=== PATIENT | male | born 1950 | race Caucasian/White ===

== ENCOUNTER 2021-06-06 18:38 | Inpatient (IN) | payer MEDICARE, OTHER ==
[~2021-06-06] VITALS: Ht 15.2 cm; Wt 48.6 kg
[~2021-06-06 18:38] MED LIST: NO HOME MEDICATIONS; PRILOSEC 20MG20 MG PO
[2021-06-06 19:16] LABS: HEMATOCRIT 40.7 % (42.0-52.0); HEMOGLOBIN 14.4 g/dl (13.5-18.0); MEAN CELL VOLUME 96 fl (80.0-100.0); MEAN CORPUSCULAR HEMOGLOBIN 34 pg (27.0-31.0); MEAN CORPUSCULAR HGB CONC 35 g/dl (33.0-37.0); MEAN PLATELET VOLUME 9.7 fl (7.4-10.4); PLATELET COUNT 289 K/mm3 (130-400); RED BLOOD COUNT 4.24 M/mm3 (4.20-5.60); REDCELL DISTRIBUTION WIDTH-CV 12.8 % (11.5-14.5)
[2021-06-06 19:34] LABS: ARTERIAL BLD GAS O2 SATURATION 93.5 % (92-100); ARTERIAL BLD GAS TCO2 CT 27.4; ARTERIAL BLOOD GAS HCO3 26.3 meq/L (22-26); ARTERIAL BLOOD GAS PCO2 35.9 mmHg (35-45); ARTERIAL BLOOD GAS PO2 65.6 mmHg (80-100); ARTERIAL BLOOD GAS pH 7.48 (7.35-7.45)
[2021-06-06 19:38] LABS: ALBUMIN 3.2 gm/dL (3.4-4.8); BILIRUBIN,TOTAL 0.7 mg/dL (0.2-1.2); C-REACTIVE PROTEIN 25.47 mg/dL (0.00-0.50); CALCIUM 9.3 mg/dL (8.4-10.2); CREATININE, serum 0.71 mg/dL (0.72-1.25); POTASSIUM 4.2 mmol/L (3.5-4.5); TOTAL PROTEIN 7.2 gm/dL (6.2-8.1)
[2021-06-06 19:44] LABS: TROPONIN-I 0.026 ng/mL (0.00-0.033)
[2021-06-06 19:51] LABS: LYMPHOCYTE 6 % (20.0-51.0); NEUTROPHILS 92 % (42.0-75.2); PLATELET ESTIMATE NORMAL (NORMAL)
--- NOTE | 2021-06-06 22:19 | NUR ---
ARRIVED TO UNIT VIA STRETCHER, SHORTNESS OF BREATH NOTED, O2@2.5L PER NC, DENIES PAIN, AMIRAH TAVERAS AT BEDSIDE.
[2021-06-06] MEDS ORDERED: RT ALBUTER2.5 MG/0.5 INH (22:21)
[2021-06-06] MEDS ORDERED: STIOLTO RESPIMAT4 GM INH (22:22)
[2021-06-06] MEDS ORDERED: ZITHROMAX 250M250 MG PO (22:23)
[2021-06-06 23:56] VITALS: BP 105/68; PULSE 109; TEMP 97.9
[2021-06-07 04:07] VITALS: BP 123/70; PULSE 96; TEMP 97.5
--- NOTE | 2021-06-07 06:18 | NUR ---
Patient rested quietly throughout the night, no c/o at this time, vs stable, updated on plan of care.
[2021-06-07 07:05] VITALS: BP 110/74; PULSE 98; TEMP 97.6
--- NOTE | 2021-06-07 07:05 | NUR ---
Pt. supine in bed, alert, awake. O2 on @3L/min NC. Breath sounds coarse through peripheral leon, dimnished @bases. Pt. reports pain in chest/clavicle area from cough. INT on right wrist intact/no redness/ edema
[2021-06-07 08:28] LABS: HEMATOCRIT 39.4 % (42.0-52.0); HEMOGLOBIN 13.5 g/dl (13.5-18.0); MEAN CELL VOLUME 97 fl (80.0-100.0); MEAN CORPUSCULAR HEMOGLOBIN 33 pg (27.0-31.0); MEAN CORPUSCULAR HGB CONC 34 g/dl (33.0-37.0); MEAN PLATELET VOLUME 10.2 fl (7.4-10.4); PLATELET COUNT 287 K/mm3 (130-400); RED BLOOD COUNT 4.05 M/mm3 (4.20-5.60); REDCELL DISTRIBUTION WIDTH-CV 12.9 % (11.5-14.5)
[2021-06-07 08:38] LABS: CALCIUM 9.5 mg/dL (8.4-10.2); CREATININE, serum 0.7 mg/dL (0.72-1.25); POTASSIUM 4.3 mmol/L (3.5-4.5)
[2021-06-07 08:46] LABS: BAND 8 % (0-10); LYMPHOCYTE 3 % (20.0-51.0); NEUTROPHILS 88 % (42.0-75.2); PLATELET ESTIMATE NORMAL (NORMAL)
--- NOTE | 2021-06-07 09:22 | NUR ---
Pt has a student nurse caring for him this am. Pt sitting in bed upon entry, he is A/O x4. Pt seems dyspneic with any exertion or speaking. Endorses some SOB. Does have a productive cough. NO pain at this time. IVF infusing without issues. No needs at this time. Call light within [facility].
--- NOTE | 2021-06-07 09:40 | NUR ---
Sputum collected. Sent to lab.Sputum white in color and thick
--- NOTE | 2021-06-07 09:44 | NUR ---
SW met with the patient to discuss discharge plan. The patient lives in [place] with his , Amena (ph#[phone]), and their son, Sean. He reports independence with ADLs and does not have any DME. The patient states that he used to have home oxygen, but [facility]. He states that the [facility] informed him that he has a fast recovery off oxygen and that he no longer needed it. The patient states that he sees a female provider at the [facility]. He states that he has only seen her once and could not recall her name. He [facility] in [facility] and in . The patient does not have a DPOA-HC and he was not interested in completing one at this time. The patient plans to return home with his upon discharge. He is currently on 2 liters of oxygen. SW to continue to monitor. *Discharge plan: home with *
[2021-06-07 11:00] VITALS: BP 122/65; PULSE 78; TEMP 98.5
--- NOTE | 2021-06-07 13:01 | NUR ---
Initial visit; Patient thanked Voice Over Announcer for stopping in and states he may be here for awhile and is concerned about his health issues. Patient appreciates Voice Over Announcer praying for him and is fine about Voice Over Announcer checking in on him while he is a patient here.
[2021-06-07 15:31] VITALS: BP 127/71; PULSE 110; TEMP 98.1
[2021-06-07 19:17] VITALS: BP 129/85; PULSE 109; TEMP 97.9
--- NOTE | 2021-06-07 21:30 | NUR ---
ASSESSMENT COMPLETE. PT COOPERATIVE WITH CARES. PT RESTING IN BED WATCHING TV. PT DENIES PAIN, PALPITATIONS, SOB OR DIZZINESS. PT STATES HE HAS NO OTHER NEEDS AT THIS TIME. CALL LIGHT WITHIN REACH.
--- NOTE | 2021-06-07 23:31 | NUR ---
PT. REQUESTED TREATMENT AT 2330 AFTER REFUSING AT 2100. WILL ATTEMPT TO DELAY THERAPY UNTIL 0800 UNLESS PATIENT CALLS OVERNIGHT.
[2021-06-08] VITALS (7 sets, daily range): BP systolic 112–156; BP diastolic 65–90; PULSE 95–118; TEMP 97.7–98.3
--- NOTE | 2021-06-08 06:40 | NUR ---
PT ASLEEP IN BED. PT SLEPT PEACEFULLY ALL NIGHT. PT DENIES PAIN, PALPITATIONS, SOB OR DIZZINESS. PT STATES HE HAS NO OTHER NEEDS AT THIS TIME. CALL LIGHT WITHIN REACH.
[2021-06-08 06:47] LABS: HEMOGLOBIN 12.2 g/dl (13.5-18.0); MEAN CELL VOLUME 97 fl (80.0-100.0); MEAN CORPUSCULAR HEMOGLOBIN 34 pg (27.0-31.0); MEAN CORPUSCULAR HGB CONC 35 g/dl (33.0-37.0); MEAN PLATELET VOLUME 10.3 fl (7.4-10.4); PLATELET COUNT 314 K/mm3 (130-400); RED BLOOD COUNT 3.59 M/mm3 (4.20-5.60); REDCELL DISTRIBUTION WIDTH-CV 12.5 % (11.5-14.5)
[2021-06-08 06:56] LABS: HEMATOCRIT 34.7 % (42.0-52.0)
[2021-06-08 07:05] LABS: CREATININE, serum 0.69 mg/dL (0.72-1.25); POTASSIUM 3.8 mmol/L (3.5-4.5)
[2021-06-08 07:34] LABS: CALCIUM 8.8 mg/dL (8.4-10.2)
[2021-06-08 07:54] LABS: BAND 13 % (0-10); LYMPHOCYTE 4 % (20.0-51.0); METAMYELOCYTE 1 % (0-0); NEUTROPHILS 78 % (42.0-75.2); PLATELET ESTIMATE NORMAL (NORMAL)
--- NOTE | 2021-06-08 08:16 | NUR ---
Pt assessment complete. Pt laying in bed upon entry, he is A/O x4. His breathing is even and unlabored on 2L O2 via NC. Reports SOB with exertion. Denies any pain. No N/V. No needs at this time. Call light within reach.
--- NOTE | 2021-06-08 14:31 | NUR ---
KAYLAH was notified that the patient and his had questions about the VA and Medicare. KAYLAH met with the patient and his , Amena, to address the above. The patient and his confirm that the patient has Medicare Part A and B. SW informed them how Medicare does cover for home oxygen, if the patient has a chronic diagnosis and qualifies for oxygen. The patient and his verbalized understanding. The patient and his report that they would like for the hospital stay to be switched to be billed under his Medicare, instead of the [facility]. They provided SW with a copy of the insurance card. KAYLAH notified and faxed a copy of the card to [employer] in admissions and [facility] with financial counseling.
--- NOTE | 2021-06-08 19:07 | NUR ---
Pt had uneventful day, did feel very SOB after ambulating to the restroom this afternoon. Pt increased to 3L O2 via NC, and PRN breathing treatments ordered. Did feel some chest tightness at that time. Denies any pain. No N/V. NO needs at this time. Call light within reach.
--- NOTE | 2021-06-08 22:30 | NUR ---
ASSESSMENT COMPLETE. PT COOPERATIVE WITH CARES. PT RESTING IN BED NAPPING. EARIER PT COMPLAINED OF FEELING "OFF," TO RESEARCH ANTHROPOLOGIST. HOWEVER PT COULD NOT DESCRIBE WHAT HE MEANT BY "OFF," WHEN I WENT IN TO CHECK ON HIM. PT STATED WHAT HE WAS FEELING WAS OVER, AT THAT POINT. PT DENIES PAIN, PALPITATIONS, SOB OR DIZZINESS. PT STATES HE HAS NO OTHER NEEDS AT THIS TIME. CALL LIGHT WITHIN REACH.
[2021-06-09 03:57] VITALS: BP 116/61; PULSE 104; TEMP 97.6
--- NOTE | 2021-06-09 06:03 | NUR ---
PT ASLEEP IN BED. PT REPORTED NO OTHER EPISODES OF FEELING "OFF" TONIGHT. CALL LIGHT WITHING REACH.
[2021-06-09 07:01] LABS: BASO % 0.1 % (0.0-2.0); GRAN # 12.1 K/mm3 (1.4-6.5); GRAN % 89.4 % (42.2-75.2); HEMOGLOBIN 11.4 g/dl (13.5-18.0); LYMPH # 0.7 K/mm3 (1.2-3.4); LYMPH % 5.4 % (20.0-51.0); MEAN CELL VOLUME 99 fl (80.0-100.0); MEAN CORPUSCULAR HEMOGLOBIN 34 pg (27.0-31.0); MEAN CORPUSCULAR HGB CONC 34 g/dl (33.0-37.0); MEAN PLATELET VOLUME 10.3 fl (7.4-10.4); MONO # 0.6 K/mm3 (0.1-0.6); MONO % 4.4 % (1.7-9.3); PLATELET COUNT 303 K/mm3 (130-400); RED BLOOD COUNT 3.37 M/mm3 (4.20-5.60); REDCELL DISTRIBUTION WIDTH-CV 12.8 % (11.5-14.5)
[2021-06-09 07:08] LABS: HEMATOCRIT 33.5 % (42.0-52.0)
[2021-06-09 07:28] LABS: CALCIUM 8.6 mg/dL (8.4-10.2); CREATININE, serum 0.69 mg/dL (0.72-1.25); MAGNESIUM 1.9 mg/dL (1.6-2.6); POTASSIUM 3.9 mmol/L (3.5-4.5)
[2021-06-09 08:00] VITALS: BP 121/81; PULSE 99; TEMP 98.1
--- NOTE | 2021-06-09 10:24 | NUR ---
PT RESTING IN BED. MORNING MEDICATIONS GIVEN. SHIFT ASSESSMENT COMPLETED. PT IV TO R HAND INFILTRATED, THIS RN REMOVED. DENIES ANY PAIN OR NEEDS. WILL CONTINUE TO MONITOR.
--- NOTE | 2021-06-09 11:12 | NUR ---
CONSENT SIGNED AND PLACED ON PT CHART.
[2021-06-09 11:36] VITALS: BP 125/86; PULSE 111; TEMP 97.7
[2021-06-09 16:00] VITALS: BP 117/81; PULSE 90; TEMP 98.8
[2021-06-09 20:30] VITALS: BP 158/83; PULSE 106; TEMP 98.9
--- NOTE | 2021-06-09 21:00 | NUR ---
ASSESSMENT COMPLETE. PT COOPERATIVE WITH CARES. PT RESTING IN BED WATCHING TV. PT DENIES PAIN, PALPITATIONS, SOB OR DIZZINESS. PT MENTION HE HAD NOT HAD A BOWEL MOVEMENT IN A COUPLE OF DAYS. WILL REPORT TO DAYSHIFT TO GET BOWEL REGIMEN STARTED AFTER HEART CATH. PT STATES HE HAS NO OTHER NEEDS AT THIS TIME. CALL LIGHT WITHIN REACH.
[2021-06-10] VITALS (13 sets, daily range): BP systolic 125–172; BP diastolic 68–96; PULSE 88–121; TEMP 97.8–98.8
--- NOTE | 2021-06-10 | NUR ---
Resting eyes closed. No s/s of pain/discomfort noted. NPO at this time for heart cath in AM.
--- NOTE | 2021-06-10 02:06 | NUR ---
PT REFUSED. SAID HE WOULD CALL IF CHANGED HIS MIND
--- NOTE | 2021-06-10 06:04 | NUR ---
PT RESTING IN BED. PT DENIES PAIN, PALPITATIONS, SOB OR DIZZINES. PT'S VS REMAIN STABLE. PT NPO SINCE MIDNIGHT. PRE-OP HEART CATH FLUIDS INFUSING WITH NOT DIFFICULTY. PT STATES HE HAS NO OTHER NEEDS AT THIS TIME. CALL LIGHT WITHIN REACH.
--- NOTE | 2021-06-10 07:19 | NUR ---
Patient down for Heart Cath. MELVIN Ward transporting in bed.
--- NOTE | 2021-06-10 07:40 | NUR ---
SEE MERGE FOR ALL MEDICATION ADMINISTRATION TIMES, INTRA AND POST SEDATION ASSESSMENTS
[2021-06-10 07:56] LABS: HEMOGLOBIN 12.9 g/dl (13.5-18.0); MEAN CELL VOLUME 96 fl (80.0-100.0); MEAN CORPUSCULAR HEMOGLOBIN 34 pg (27.0-31.0); MEAN CORPUSCULAR HGB CONC 35 g/dl (33.0-37.0); MEAN PLATELET VOLUME 9.3 fl (7.4-10.4); PLATELET COUNT 348 K/mm3 (130-400); RED BLOOD COUNT 3.79 M/mm3 (4.20-5.60); REDCELL DISTRIBUTION WIDTH-CV 12.7 % (11.5-14.5)
[2021-06-10 07:57] LABS: HEMATOCRIT 36.4 % (42.0-52.0)
[2021-06-10 08:02] LABS: CALCIUM 9.4 mg/dL (8.4-10.2); CREATININE, serum 0.66 mg/dL (0.72-1.25); POTASSIUM 4.2 mmol/L (3.5-4.5)
[2021-06-10 08:03] LABS: PROTHROMBIN TIME 10.9 SECONDS (9.7-12.8)
[2021-06-10 08:06] LABS: PARTIAL THROMBOPLASTIN TIME 28.8 SECONDS (26.0-37.0)
--- NOTE | 2021-06-10 08:40 | NUR ---
Patient back from photonic laboratory technician. Report recieved from Sylvia CHARLES. Patient hooked up to post op vitals. Scheduled meds given. Shift assessment performed. VSS. Patient A&O. Denies any pain at this time. Currently requiring 1 L of O2 via nasal cannula. Right radial compression band in use. 12ML of air in place. No bleeding noted. Site soft with no hematoma. Patient denies any further needs at this time. Call light in reach.
[2021-06-10] MEDS ORDERED: ASPIRIN 81M81 MG/TA2 PO (10:45)
[2021-06-10] MEDS ORDERED: LIPITOR20 MG PO (10:45)
[2021-06-10] MEDS ORDERED: PULMICORT90 MCG/Act IH ×2 (10:49)
[2021-06-10] MEDS ORDERED: PREDNISONE10 MG PO (10:53)
[2021-06-10] MEDS ORDERED: PROAIR HFA0.09 MG/AC IH (11:13)
--- NOTE | 2021-06-10 11:15 | NUR ---
5 MLof air taken out of radial band. No bleeding noted. Tele informed this RN that patient had a heart rate in the 120's. Patient is asymptomatic. JN Paz notified.
[2021-06-10] MEDS ORDERED: RT ALBUTER2.5 MG/0.5 IH (11:20)
[2021-06-10] MEDS ORDERED: PERFOROMIS20 MCG/2 M IH ×3 (11:20→17:06)
[2021-06-10] MEDS ORDERED: ATROVENT I0.2 MG/1 M IH (11:20)
[2021-06-10] MEDS ORDERED: PULMICORT0.5 MG/2 M IH ×3 (11:20→17:06)
--- NOTE | 2021-06-10 12:07 | NUR ---
The patient is ready to discharge today. The patient had an exercise oximetry and he qualified for oxygen. KAYLAH met with the patient to update and informed him of the local DME companies. The patient was agreeable with getting his oxygen from [facility]. KAYLAH presented and read the IM form outloud to him. The patient verbalized understanding and gave SW approval to sign the form on his behalf. He declined a copy. KAYLAH contacted and updated the patient's , Amena. Amena would like to see if [facility] can deliver the oxygen to the patient's room. If they cannot until later, she reports that she can pick it up. KAYLAH contacted and faxed and emailed the oxygen order to [facility]. Awaiting a response back on when they could deliver.
--- NOTE | 2021-06-10 12:15 | NUR ---
5ML OF AIR TAKEN OUT OF RADIAL BAND. NO BLEEDING NOTED. VSS
--- NOTE | 2021-06-10 13:13 | NUR ---
Cate, at [facility], reports that they would need for the patient to come berry picker the oxygen. KAYLAH contacted the patient's , Amena, to update. Amena reports that she went ahead and just picked up the oxygen from [facility]. She reports that she has it now and is on the way up to the hospital to berry picker the patient. No additional needs at this time.
--- NOTE | 2021-06-10 16:35 | NUR ---
Last 4 ML of air taken out of radial band. Bandaid placed on site. No bleeding or hematoma noted. Patient denies any pain. Patient deemed fit for discharge. IV DC'd, catheter intact, no signs of phlebitis. Discharge education/instructions given. All questions answered. Patient going home on 2L of O2. Patient denies any further pain, discomfort, or needs at this time. Patient transported out of building via wheelchair escorted by [facility] Staff. transporting home. VSS. Patient A&O.
== END 2021-06-10 13:46 | disposition home or self-care (01) | DRG 190 ==
LOC: COL.ER 18:38 → MEDICAL 20:20
PROVIDERS: Nurse Practitioner; Physician Assistant; Student in an Organized Health Care Education/Training Program; ADMIT Internal Medicine
PROC: B211YZZ Fluoroscopy of Multiple Coronary Arteries using Other Contrast (ICD-10-PCS; principal; 2021-06-10)
DX: J43.9 Emphysema, unspecified (principal); J18.9 Pneumonia, unspecified organism; J96.21 Acute and chronic respiratory failure with hypoxia; R65.10 Systemic inflammatory response syndrome (SIRS) of non-infectious origin without acute organ dysfunction; K21.9 Gastro-esophageal reflux disease without esophagitis; Z87.891 Personal history of nicotine dependence; I35.0 Nonrheumatic aortic (valve) stenosis; I27.20 Pulmonary hypertension, unspecified; I10 Essential (primary) hypertension; Z20.822 Contact with and (suspected) exposure to COVID-19
CPT/HCPCS: 99223-AI; 99232-AI; 99233-AI; 99239; C1769; J0456; J0696; J1644; J1650; J1956; J2250; J2920; J2930; J3010; J7030; J7050; J7512

== ENCOUNTER 2021-07-30 17:00 | Inpatient (IN) | payer OTHER, MEDICARE ==
[~2021-07-30] VITALS: Ht 167.6 cm; Wt 47.7 kg
[~2021-07-30 17:00] MED LIST changes: +ASPIRIN 81M81 MG/TA2 PO; +ATROVENT I0.2 MG/1 M IH; +LIPITOR20 MG PO; +PERFOROMIS20 MCG/2 M IH; +PREDNISONE10 MG PO; +PROAIR HFA0.09 MG/AC IH; +PULMICORT0.5 MG/2 M IH; +PULMICORT90 MCG/Act IH; +RT ALBUTER2.5 MG/0.5 IH; +RT ALBUTER2.5 MG/0.5 INH; +STIOLTO RESPIMAT4 GM INH; +ZITHROMAX 250M250 MG PO
[2021-07-30 18:32] LABS: BASO % 0.1 % (0.0-2.0); GRAN # 7.9 K/mm3 (1.4-6.5); GRAN % 87.8 % (42.2-75.2); HEMOGLOBIN 11.4 g/dl (13.5-18.0); LYMPH # 0.7 K/mm3 (1.2-3.4); LYMPH % 8.1 % (20.0-51.0); MEAN CELL VOLUME 96 fl (80.0-100.0); MEAN CORPUSCULAR HEMOGLOBIN 33 pg (27-31); MEAN CORPUSCULAR HGB CONC 34 g/dl (33.0-37.0); MEAN PLATELET VOLUME 9.9 fl (7.4-10.4); MONO # 0.3 K/mm3 (0.1-0.6); MONO % 3.7 % (1.7-9.3); PLATELET COUNT 234 K/mm3 (130-400); RED BLOOD COUNT 3.49 M/mm3 (4.20-5.60); REDCELL DISTRIBUTION WIDTH-CV 12.8 % (11.5-14.5)
[2021-07-30 18:33] LABS: HEMATOCRIT 33.6 % (42.0-52.0)
[2021-07-30 18:49] LABS: ALBUMIN 2.8 gm/dL (3.4-4.8); BILIRUBIN,TOTAL 0.4 mg/dL (0.2-1.2); CALCIUM 8.3 mg/dL (8.4-10.2); CREATININE, serum 0.61 mg/dL (0.72-1.25); POTASSIUM 4.5 mmol/L (3.5-4.5); TOTAL PROTEIN 6.4 gm/dL (6.2-8.1)
[2021-07-30 23:00] VITALS: BP 160/91; PULSE 109; TEMP 97.5
[2021-07-30] MEDS ORDERED: ZEBETA 5MG5 MG PO (23:30)
[2021-07-31] VITALS (8 sets, daily range): BP systolic 107–150; BP diastolic 49–97; PULSE 94–113; TEMP 97.1–97.7
--- NOTE | 2021-07-31 06:26 | NUR ---
PT ARRIVED TO MEDICAL FLOOR AROUND 2300HRS TO [id number]. PT A&O X4; VSS; O2 4.5L VIA OXIMASK. PT DENIES CHEST PAIN, N,V,D OR DIZZINESS. ADMISSIONS ASSESSMENT COMPLETE. MED REC COMPLETE. PT ORIENTED TO ROOM AND HOSPITAL POLICY. POC DISCUSSED WITH PT. PT VERBALIZES UNDERSTANDING. 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 DAVID AMBRIZ INFORMED, WITH PERMISSION OF PT, THAT PT HAS PALLIATIVE CONSULT IN AND DECISION SHOULD BE MADE AFTER THAT. INFORMATION PASSED ON TO DAYSHIFT RN. ALL QUESTIONS AND CONCERNS ADDRESSED. PT EXPRESSED NO OTHER NEEDS AT THIS TIME. CALL LIGHT WITHIN REACH.
--- NOTE | 2021-07-31 10:24 | NUR ---
PT RESTING IN BED. MORNING MEDICATIONS GIVEN. SHIFT ASSESSMENT COMPLETED. DENIED ANY PAIN AT THIS TIME. CURRENTLY ON 3L VIA AK, REPORTS THAT 3-4L IS HIS BASELINE AT HOME. WILL CONTINUE TO MONITOR.
[2021-08-01 03:24] VITALS: BP 110/66; PULSE 104; TEMP 97.5
--- NOTE | 2021-08-01 05:21 | NUR ---
Patient calm and cooperative throughout the night. No new issues noted or reported by patient.
[2021-08-01 07:49] LABS: HEMOGLOBIN 10.5 g/dl (13.5-18.0); MEAN CELL VOLUME 94 fl (80.0-100.0); MEAN CORPUSCULAR HEMOGLOBIN 33 pg (27-31); MEAN CORPUSCULAR HGB CONC 35 g/dl (33.0-37.0); PLATELET COUNT 328 K/mm3 (130-400); RED BLOOD COUNT 3.17 M/mm3 (4.20-5.60); REDCELL DISTRIBUTION WIDTH-CV 12.9 % (11.5-14.5)
[2021-08-01 07:50] LABS: HEMATOCRIT 29.8 % (42.0-52.0)
[2021-08-01 08:09] LABS: ALBUMIN 2.6 gm/dL (3.4-4.8); BILIRUBIN,TOTAL 0.2 mg/dL (0.2-1.2); C-REACTIVE PROTEIN 10.26 mg/dL (0.00-0.50); CALCIUM 8.1 mg/dL (8.4-10.2); CREATININE, serum 0.6 mg/dL (0.72-1.25); POTASSIUM 4.1 mmol/L (3.5-4.5); TOTAL PROTEIN 5.8 gm/dL (6.2-8.1)
[2021-08-01 08:23] VITALS: BP 126/74; PULSE 96; TEMP 97.7
--- NOTE | 2021-08-01 09:14 | NUR ---
Call made to patient's Amena. She gave me the patient's cell #[phone]. Called but no answer. Discussed with primary nurse and she will check that roque has phone and ask if we can go a conference call with his to answer questions.
--- NOTE | 2021-08-01 09:38 | NUR ---
Dr. Roe gave me contact information for son King Resendiz #[phone]. He is local at the moment but will set up a conference call with his mother and father so we can discuss things all together.
[2021-08-01] MEDS ORDERED: DOXYCYCLINE HY100 MG PO (10:24)
--- NOTE | 2021-08-01 10:24 | NUR ---
Conference call made with patient, his Brad and son King. The patient and his have already been working with [facility] and would like to continue active covid treatment for a few more days, King would like an update from the hospitalist, and they plan to move forward with [facility] at home once he has been cleared for discharge. Notified hospitalist team and SW of the decision and requests for updates.
[2021-08-01] MEDS ORDERED: OMNICEF 300MG300 MG PO (10:25)
[2021-08-01] MEDS ORDERED: DECADRON6 MG PO (10:43)
--- NOTE | 2021-08-01 10:48 | NUR ---
IV access lost. Patient had an amiodarone gtt running that infiltrated; Area is cool to the touch and pitting 2+. Patient does not respond as if the area is painful. Patient asked if any pain present, nodded no. Patient is bipap dependent at this time. Plan is for PICC to be placed once Leatha is available.
--- NOTE | 2021-08-01 11:33 | NUR ---
Patient is doing well this morning, on baseline amount of oxygen via NC. Does not have any complaints/concerns this morning. New IV started in the right upper arm, doxycycline currently running.
[2021-08-01 12:39] VITALS: BP 121/79; PULSE 110; TEMP 98.5
--- NOTE | 2021-08-01 13:37 | NUR ---
Coordinated with SW, family, and [facility] for discharge. King stated he can be here around 3pm to package pick up the patient.
[2021-08-01] MEDS ORDERED: ROXANOL 20MG20 MG/ML SL ×3 (13:55→14:15)
[2021-08-01] MEDS ORDERED: ATIVAN 0.50.5 MG/TAB PO (13:55)
--- NOTE | 2021-08-01 14:07 | NUR ---
rebar worker spoke with patient to complete intake via phone due to covid + status. Patient reports that he lives at home with his Amena [phone] in [place]. Patient reports that he is independent with his activities of daily living and does not utilize any DME to assist with mobility. Patient is on 2-3L of oxygen at home which [facility] at [facility]. PCP was the [facility] but he has recently switched to and he gets his medications through [facility]. Patient reports that he does not have a DPOA-HC established at this time. Patient is arranged to go home with [facility]. Patient's son is planning on picking him up this afternoon and contact made with Scarlet at [facility] who can do the patient's intake this evening. Patient's referral and discharge orders faxed to Scarlet at [facility]. Discharge plan: Home with [facility]
--- NOTE | 2021-08-01 17:14 | NUR ---
Patient will be discharging home w/ HH and hospice. Education discussed, IVs removed. Currently awaiting son's arrival to pick the patient up.
--- NOTE | 2021-08-01 17:53 | NUR ---
Patient discharged and escorted out by this RN and PCT at 1730.,
== END 2021-08-01 17:30 | disposition home health service (06) | DRG 178 ==
LOC: COL.ER 17:00 → MEDICAL 19:14
PROVIDERS: Family Medicine; Internal Medicine; ADMIT Internal Medicine
PROC: XW033E5 Introduction of Remdesivir Anti-infective into Peripheral Vein, Percutaneous Approach, New Technology Group 5 (ICD-10-PCS; principal; 2021-07-30)
DX: U07.1 COVID-19 (principal); J44.1 Chronic obstructive pulmonary disease with (acute) exacerbation; K21.9 Gastro-esophageal reflux disease without esophagitis; I35.0 Nonrheumatic aortic (valve) stenosis; Z66 Do not resuscitate; D72.829 Elevated white blood cell count, unspecified; T38.0X5A Adverse effect of glucocorticoids and synthetic analogues, initial encounter; Z99.81 Dependence on supplemental oxygen; Z87.891 Personal history of nicotine dependence; Z79.82 Long term (current) use of aspirin; Z79.52 Long term (current) use of systemic steroids; Z51.5 Encounter for palliative care
CPT/HCPCS: 99223-AI; 99232-AI; 99239; J0248; J0696; J1100; J1650; J2930; J7050; Q9967